=== PATIENT | male | born 1950 | race Two or more races ===

== ENCOUNTER 2020-01-24 18:33 | Emergency (ER) | payer MEDICARE ==
[~2020-01-24] VITALS: Ht 180.3 cm; Wt 100.0 kg
[2020-01-24] MEDS ORDERED: ATOR10TA PO (18:38)
[2020-01-24 20:23] VITALS: BP 141/74
== END 2020-01-24 23:42 | disposition home or self-care (01) ==
LOC: ER 18:33
DX: I83.92 Asymptomatic varicose veins of left lower extremity (principal); E78.00 Pure hypercholesterolemia, unspecified
CPT/HCPCS: 99283